=== PATIENT | female | born 1980 | race Hispanic/Latino ===

== ENCOUNTER 2016-12-15 08:58 | Emergency (ER) | payer OTHER ==
[2016-12-15 09:08] VITALS: TEMP 98; O2SAT 98
[2016-12-15 09:09] VITALS: BMI 24.7
[2016-12-15] MEDS ORDERED: Sodium Chloride 0.9% 1,000 ML IV STA (09:52)
--- NOTE | 2016-12-15 09:57 | ED PDOC ---
HPI: Back <Samantha Mobley Y - Last Filed: 12/15/16 12:40> Chief Complaint (Provider): Back pain, nausea History Per: Patient History/Exam Limitations: no limitations Onset/Duration Of Symptoms: Days (1) Current Symptoms Are (Timing): Still Present Quality Of Discomfort: Unable To Describe Severity: Mild Pain Scale Rating Of: 1 Exacerbating Factor(s): Movement Additional Complaint(s): 36 year old female presents with chills, nausea, back pain that began overnight , and urinary frequency for the past few days. Patient took temp at home overnight was approx. 99.0F, denies chest pain, dyspnea, dysuria, hematuria, diarrhea, pedal edema. Reports having nephrolithiasis in June 2016, but she passed the stone, these symptoms are similar to last presentation to ED but were more gradual. She took a tramadol last night, with relief of pain, but nausea persisted. She has no appetite. Does not think she is , although she is trying to conceive. LMP: 11/23/16. <Sowmya Dean - Last Filed: 01/04/17 11:32> Time Seen by Provider: 12/15/16 09:23 Chief Complaint (Nursing): Back Pain Past Medical History Vital Signs: Last Vital Signs Temp 98 F 12/15/16 09:23 Pulse 83 12/15/16 09:23 Resp 16 12/15/16 09:23 BP 99/59 L 12/15/16 09:23 Pulse Ox 98 12/15/16 12:06 <LeandraSamantha Y - Last Filed: 12/15/16 12:40> Vital Signs: Last Vital Signs Temp 98 F 12/15/16 09:23 Pulse 83 12/15/16 09:23 Resp 16 12/15/16 09:23 BP 99/59 L 12/15/16 09:23 Pulse Ox 98 12/15/16 09:23 - Medical History PMH: Kidney Stones - Surgical History Surgical History: - Family History Family History: States: Unknown Family Hx <Sowmya Dean - Last Filed: 01/04/17 11:32> - Home Medications Home Medications: Ambulatory Orders Medication Instructions Recorded Tamsulosin [Flomax] 0.4 mg PO DAILY #5 cap 07/24/16 traMADol [Ultram] 50 mg PO Q8 #10 tab 07/24/16 Ondansetron ODT [Zofran ODT] 4 mg PO Q6 PRN #10 odt 07/25/16 Nitrofurantoin Macrocrystals 100 mg PO BID #14 cap 12/15/16 [Macrobid] Tamsulosin [Flomax] 0.4 mg PO DAILY #14 cap 12/15/16 oxyCODONE/Acetaminophen [Percocet 1 tab PO Q6H PRN #5 tab 12/15/16 5/325 mg Tab] - Allergies Allergies/Adverse Reactions: Allergies Allergy/AdvReac Type Severity Reaction Status Date / Time wheat dextrin AdvReac PAIN Verified 12/15/16 09:27 Physical Exam - Reviewed Vital Signs Reviewed: Yes (BP: 99/59) - Physical Exam Appears: Positive for: Uncomfortable Skin: Positive for: Normal Color Eye Exam: Positive for: Normal appearance Neck: Positive for: Normal, Painless ROM Cardiovascular/Chest: Positive for: Regular Rate, Rhythm. Negative for: Edema, JVD, Murmur, Bradycardia, Tachycardia Respiratory: Positive for: Normal Breath Sounds. Negative for: Accessory Muscle Use, Crackles, Rales, Rhonchi, Wheezing, Respiratory Distress Gastrointestinal/Abdominal: Positive for: Bowel Sounds, Soft, Tenderness (right lumbar, suprapubic ). Negative for: Organomegaly, Distended, Guarding, Rebound Back: Positive for: Normal Inspection. 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 Mobley who agrees with the assessment and plan delineated above. Reassessment : 12:00 Denies pain, nausea improved. CBC, CMP WNL UA: moderate blood Upreg negative findings d/w Dr. Mobley <Sowmya Dean - Last Filed: 01/04/17 11:32> Medical Decision Making Medical Decision Making: Reevaluation 12:41 Pt is feeling better and tolerating PO. Explained to pt that blood in urine can be kidney stones, but pt is comfortable and tolerating PO. No need for imaging at this time. Labs reviewed. Instructed for outpatient urology follow-up. Patient agreed to treatment plan. Scribe Attestation: Documented by Nena Mansfield, acting as a scribe for Samantha Mobley MD. Provider Scribe Attestation: All medical record entries made by the Scribe were at my direction and personally dictated by me. I have reviewed the chart and agree that the record accurately reflects my personal performance of the history, physical exam, medical decision making, and the department course for this patient. I have also personally directed, reviewed, and agree with the discharge instructions and disposition. <Samantha Mobley - Last Filed: 12/15/16 12:40> Disposition <Samantha Mobley - Last Filed: 12/15/16 12:40> - Disposition Disposition Time: 11:32 <Sowmya Dean - Last Filed: 01/04/17 11:32> - Clinical Impression Clinical Impression: Hematuria - Disposition Referrals: Arie Cueva MD [Medical Doctor] - Condition: IMPROVED Additional Instructions: follow up with urologist in 1-2 days return to the ED with any worsening or concerning symptoms. Prescriptions: Nitrofurantoin Macrocrystals [Macrobid] 100 mg PO BID #14 cap oxyCODONE/Acetaminophen [Percocet 5/325 mg Tab] 1 tab PO Q6H PRN #5 tab PRN Reason: Pain, Moderate (4-7) Tamsulosin [Flomax] 0.4 mg PO DAILY #14 cap Instructions: Acute Hematuria (ED)
[2016-12-15 10:37] LABS: BASO % 0.2 % (0.0-2.0); EOS % 0.6 % (0.0-4.0); HEMATOCRIT 43.2 % (34.0-47.0); LYMPH # 0.8 K/uL (1.0-4.3); LYMPH % 13.4 % (20.0-40.0); MEAN CELL VOLUME 94.8 fl (81.0-99.0); MEAN CORPUSCULAR HEMOGLOBIN 31.3 pg (27.0-31.0); MEAN PLATELET VOLUME 7.8 fl (7.2-11.7); MONO # 0.7 K/uL (0.0-0.8); MONO % 13.2 % (0.0-10.0); NEUT # 4.1 K/uL (1.8-7.0); NEUT % 72.6 % (50.0-75.0); RED CELL DISTRIBUTION WIDTH 13.7 % (11.5-14.5); WHITE BLOOD COUNT 5.6 K/uL (4.8-10.8)
[2016-12-15 10:59] LABS: ALB/GLOB RATIO 1.4 (1.0-2.1); ALKALINE PHOSPHATASE 68 U/L (38-126); ALT/SGPT 36 U/L (9-52); AST/SGOT 34 U/L (14-36); BILIRUBIN,TOTAL 0.5 mg/dl (0.2-1.3); BLOOD UREA NITROGEN 13 mg/dl (7-17); CALCIUM 9.1 mg/dL (8.4-10.2); CARBON DIOXIDE 23 mmol/L (22-30); CHLORIDE 106 mmol/L (98-107); GFR AFRICAN-AMERICAN > 60; GLUCOSE,RANDOM 86 mg/dL (65-105); POTASSIUM 4.3 MMOL/L (3.6-5.0); SODIUM 137 mmol/l (132-148); TOTAL PROTEIN 7.1 G/DL (6.3-8.2)
[2016-12-15 11:14] LABS: RBC URINE 9 /hpf (0-3); URINE BILIRUBIN NEGATIVE (NEGATIVE); URINE BLOOD SMALL (NEGATIVE); URINE COLOR YELLOW (YELLOW); URINE GLUCOSE (UA) NEG (Normal); URINE KETONE 20 mg/dL (NEGATIVE); URINE LEUKOCYTE ESTERASE NEG Leu/uL (Negative); URINE PROTEIN NEGATIVE (NEGATIVE); URINE UROBILINOGEN 0.2-1.0 mg/dL (0.2-1.0); WBC URINE 1 /hpf (0-5)
[2016-12-15 13:37] VITALS: BP 105/68; PULSE 80; RESP 18
== END 2016-12-15 12:56 | disposition home or self-care (01) ==
LOC: MERGE 08:58 → H.ER 08:58
DX: R31.9 Hematuria, unspecified (principal)

== ENCOUNTER 2017-05-30 18:21 | Emergency (ER) | payer OTHER ==
[2017-05-30 18:21] VITALS: BMI 24.7
[2017-05-30 18:27] VITALS: RESP 16; TEMP 98.3
[2017-05-30] MEDS ORDERED: Lactated Ringer's 1,000 ML IV STA (19:01)
[2017-05-30 19:08] VITALS: O2SAT 100
[2017-05-30 19:10] LABS: BASO % 0.2 % (0.0-2.0); EOS % 0.1 % (0.0-4.0); HEMOGLOBIN 11.9 g/dL (12.0-16.0); LYMPH # 0.5 K/uL (1.0-4.3); LYMPH % 2.6 % (20.0-40.0); MEAN CELL VOLUME 93.9 fl (81.0-99.0); MEAN CORPUSCULAR HEMOGLOBIN 32.4 pg (27.0-31.0); MEAN CORPUSCULAR HGB CONC 34.5 g/dL (33.0-37.0); MEAN PLATELET VOLUME 7.2 fl (7.2-11.7); MONO # 0.9 K/uL (0.0-0.8); MONO % 4.7 % (0.0-10.0); NEUT # 17.4 K/uL (1.8-7.0); NEUT % 92.4 % (50.0-75.0); PLATELET COUNT 280 K/uL (130-400); RBC 3.68 Mil/uL (3.80-5.20); WHITE BLOOD COUNT 18.9 K/uL (4.8-10.8)
[2017-05-30] MEDS ORDERED: Dextrose 5%/Lactated Ringer's 1,000 ML IV SCH (19:15)
[2017-05-30 19:29] VITALS: BP 116/95; PULSE 97
[2017-05-30 19:31] LABS: ALBUMIN 3.3 g/dL (3.5-5.0); ALT/SGPT 36 U/L (9-52); AST/SGOT 21 U/L (14-36); BLOOD UREA NITROGEN 8 mg/dl (7-17); CALCIUM 8.3 mg/dL (8.4-10.2); GFR AFRICAN-AMERICAN > 60; GFR NON-AFRICAN AMERICAN > 60; MAGNESIUM 1.6 MG/DL (1.6-2.3)
[2017-05-30 19:37] LABS: ALB/GLOB RATIO 1.1 (1.0-2.1)
[2017-05-30 19:41] LABS: ANISOCYTOSIS SLIGHT; BANDS 1 % (0-2); EOSINOPHIL 1 % (0-7); LYMPHOCYTE 3 % (20-50); MONOCYTE 4 % (0-10); NEUTROPHIL 91 % (42-75); PLATELET ESTIMATE NORMAL (NORMAL); TOTAL CELLS COUNTED 100
--- NOTE | 2017-05-30 19:47 | ED PDOC ---
Syncope/Near Syncope/Dizziness Time Seen by Provider: 05/30/17 18:29 Chief Complaint (Nursing): Syncope Chief Complaint (Provider): Syncope History Per: Patient, Family () History/Exam Limitations: no limitations Onset/Duration Of Symptoms: Mins (prior to arrival) Additional Complaint(s): 36 year old female, who is approximately 18 weeks , presents to the ER after syncopal episode today. Patient states she woke up with sore throat this morning, and over the course of day began having episodes of watery non-bloody diarrhea. Just prior to arrival, she became nauseous and attempted to vomit, but passed out. reported patient had a few seconds of convulsive activity, after which she woke up with no post-ictal state or urinary incontinence. Patient has history of syncopal episodes in the past. Able to tolerate fluids today but no appetite. Also reports crampy abdominal pain. Patient states that her 2yo child had loose stools this past week. PMD: Dr. Shoemaker Past Medical History Reviewed: Historical Data, Nursing Documentation, Vital Signs Vital Signs: Last Vital Signs Temp 98.3 F 05/30/17 18:23 Pulse 97 H 05/30/17 19:28 Resp 16 05/30/17 19:28 BP 116/95 H 05/30/17 19:28 Pulse Ox 100 05/30/17 19:28 - Medical History PMH: Kidney Stones, Chronic Kidney Disease Other PMH: Ciliac disease - Surgical History Surgical History: - Family History Family History: States: Unknown Family Hx - Social History Current smoker - smoking cessation education provided: No Alcohol: None - Home Medications Home Medications: Ambulatory Orders Medication Instructions Recorded Tamsulosin [Flomax] 0.4 mg PO DAILY #5 cap 07/24/16 traMADol [Ultram] 50 mg PO Q8 #10 tab 07/24/16 Ondansetron ODT [Zofran ODT] 4 mg PO Q6 PRN #10 odt 07/25/16 Nitrofurantoin Macrocrystals 100 mg PO BID #14 cap 12/15/16 [Macrobid] Tamsulosin [Flomax] 0.4 mg PO DAILY #14 cap 12/15/16 oxyCODONE/Acetaminophen [Percocet 1 tab PO Q6H PRN #5 tab 12/15/16 5/325 mg Tab] Dicyclomine [Bentyl] 20 mg PO BID PRN #30 tab 05/30/17 Ondansetron ODT [Zofran ODT] 1 odt PO Q6 PRN #20 odt 05/30/17 Oseltamivir [Tamiflu] 75 mg PO BID #10 cap 05/30/17 - Allergies Allergies/Adverse Reactions: Allergies Allergy/AdvReac Type Severity Reaction Status Date / Time wheat dextrin AdvReac PAIN Verified 12/15/16 09:27 Review of Systems ROS Statement: Except As Marked, All Systems Reviewed And Found Negative (As per HPI, otherwise negative) Gastrointestinal: Positive for: Nausea, Abdominal Pain, Diarrhea. Negative for : Vomiting Genitourinary Female: Negative for: Incontinence Neurological: Positive for: Other (syncope) Physical Exam - Reviewed Nursing Documentation Reviewed: Yes Vital Signs Reviewed: Yes - Physical Exam Appears: Positive for: Non-toxic, No Acute Distress (but tired appearing) Head Exam: Positive for: ATRAUMATIC, NORMOCEPHALIC Skin: Positive for: Warm, Dry, Pallor Eye Exam: Positive for: EOMI, PERRL ENT: Positive for: Pharynx Is (clear with dry mucus membranes) Neck: Positive for: Painless ROM, Supple Cardiovascular/Chest: Positive for: Regular Rate, Rhythm, Chest Non Tender. Negative for: Murmur Respiratory: Positive for: Normal Breath Sounds. Negative for: Respiratory Distress Gastrointestinal/Abdominal: Positive for: Bowel Sounds, Soft, Tenderness (mild lower abdominal). Negative for: Mass, Distended, Guarding, Rebound Back: Negative for: Decreased ROM Extremity: Positive for: Normal ROM. Negative for: Pedal Edema, Deformity Lymphatic: Negative for: Adenopathy Neurologic/Psych: Positive for: Alert, Oriented (x3), Mood/Affect (mildly anxious affect). Negative for: Motor/Sensory Deficits - Laboratory Results Result Diagrams: 05/30/17 19:04 05/30/17 19:04 - ECG O2 Sat by Pulse Oximetry: 100 (RA) Pulse Ox Interpretation: Normal Medical Decision Making Medical Decision Making: Initial Impression: Syncope, diarrheal illness Differential includes but is not limited to: gastroenteritis, dehydration, electrolyte abnormality, hypovolemia, or viral illness Time: 18:42 Initial Plan: * EKG * Labs * Urine dipstick * Rapid strep test * Influenza A B * Throat culture * Lactated Ringers IV * Zofran 4 mg IV * Dextrose 5%/Lactated Ringers IV * Pending US OB Patient Name: TARA OLGUIN (Age): 1980 36 Gender: F Date of Exam: 05/30/2017 Referring Physician: Iona Jay # of Images: [phone] Ordered As: US OB LIMITED Page 1 of 2 EXAM: US After First Trimester, Transabdominal EXAM DATE/TIME: 05/30/2017 7:02 PM CLINICAL HISTORY: 36 years old, female; Signs and symptoms; Lmp or gestational age (in weeks): ; Other: Syncope; ; Additional info: Abd pain syncope R/O demise TECHNIQUE: Real-time transabdominal obstetrical ultrasound of the maternal pelvis and a second or third trimester with image documentation. COMPARISON: There are no prior studies for comparison. FINDINGS: Fetus: There is a single living intrauterine gestation in breech presentation. There is a heart rate of 145 beats per minute. motion was seen at real-time. Placenta: Placenta is posterior and low-lying. Amniotic fluid: Amnionic fluid volume appears normal. Anatomy: Early gestational age limits evaluation of anatomy. BIOMETRICS Gestational age by US: 18 weeks 5 days EFW: 236 g MATERNAL: Cervix: Cervix measures approximately 4 cm in length IMPRESSION: 18 week 5 day single breech fetus, estimated date of delivery ; low-lying posterior placenta Labs demonstrate leukocytosis, which is consistent with acute infectious illness. Otherwise, no emergently significant abnormalities. Time: 22:40 Patient reporting she is feeling better. She walked to the bathroom without lightheadedness. Discussed w/ patient findings, and she is agreeable to discharge plan. Will follow up with OB or primary care. Scribe Attestation: Documented by Letty Cyr, acting as a scribe for Iona Jay MD Provider Scribe Attestation: All medical record entries made by the Scribe were at my direction and personally dictated by me. I have reviewed the chart and agree that the record accurately reflects my personal performance of the history, physical exam, medical decision making, and the department course for this patient. I have also personally directed, reviewed, and agree with the discharge instructions and disposition. Disposition - Clinical Impression Clinical Impression: Syncope, Viral illness - Disposition Referrals: Jax Shoemaker MD [Staff Provider] - 05/31/17 Disposition: Routine/Home Disposition Time: 20:00 Condition: IMPROVED Additional Instructions: REST AND DRINK PLENTY OF HYDRATING FLUIDS Prescriptions: Dicyclomine [Bentyl] 20 mg PO BID PRN #30 tab PRN Reason: abdominal pain Ondansetron ODT [Zofran ODT] 1 odt PO Q6 PRN #20 odt PRN Reason: Nausea/Vomiting Oseltamivir [Tamiflu] 75 mg PO BID #10 cap Instructions: Syncope (ED), Gastroenteritis (ED), Nutrition Tips for Relief of Diarrhea (ED) Forms: [facility] ED School/Work Excuse
--- NOTE | 2017-05-31 09:34 | US ---
PROCEDURE: Obstetrical ultrasound examination HISTORY: abd pain syncope r/o demise COMPARISON: Not available TECHNIQUE: Transabdominal FINDINGS: The examination demonstrates a single live intrauterine gestation in breech presentation. The heart rate is 145 beats per minute. A normal quantity of amniotic fluid is visualized grossly. A posterior placenta is identified. The placenta is low-lying. There is no evidence of placenta previa. The cervix is closed and measures 4.0 cm in length. biometry yields a gestational age by ultrasound of 18 weeks 5 days. The RACQUEL by ultrasound is 10/26/2017. The EFW is 236.16 g. Neither the right nor the left ovary are visualized. There are no adnexal masses seen. anatomy was not formally evaluated at this time. IMPRESSION: Single live intrauterine gestation of approximately 18 weeks 5 days. Breech presentation. Low-lying placenta. Cervix long and closed. 145. Preliminary interpretation of this examination was reported by [facility] at 9:57 p.m. on 05/30/2017. There is concurrence of this report with the preliminary interpretation.
--- NOTE | 2017-05-31 10:52 | CARD ---
APPROVED REPORT EKG Measurement Heart [id number] <Conclusion> Normal sinus rhythm Normal ECG
== END 2017-05-31 00:24 | disposition home or self-care (01) ==
LOC: H.ER 18:21
DX: O99.89 Other specified diseases and conditions complicating pregnancy, childbirth and the puerperium (principal); O26.892 Other specified pregnancy related conditions, second trimester; O26.832 Pregnancy related renal disease, second trimester; Z87.442 Personal history of urinary calculi; N18.9 Chronic kidney disease, unspecified; O98.512 Other viral diseases complicating pregnancy, second trimester; Z36.9 Encounter for antenatal screening, unspecified; Z3A.18 18 weeks gestation of pregnancy; O32.1XX0 Maternal care for breech presentation, not applicable or unspecified
CPT/HCPCS: 76815; 80053; 82550; 82948; 83605; 83735; 84100; 85025; 86850; 86900; 87070; 87430; 87804; 93005; 96374; 99285; J2405; J7120

== ENCOUNTER 2017-12-22 03:02 | Emergency (ER) | payer OTHER ==
[2017-12-22 03:02] VITALS: BMI 24.7
[2017-12-22] MEDS ORDERED: Sodium Chloride 0.9% 1,000 ML IV STA ×2 (03:31→04:22)
--- NOTE | 2017-12-22 03:39 | ED PDOC ---
HPI: Headache Time Seen by Provider: 12/22/17 03:15 Chief Complaint (Nursing): Headache Chief Complaint (Provider): headache History Per: Patient History/Exam Limitations: no limitations Onset/Duration Of Symptoms: Hrs Current Symptoms Are (Timing): Still Present Quality: "Pain" Associated Symptoms: Photophobia, Nausea, Vomiting Additional Complaint(s): 37 y/o female presents for evaluation of frontal headache x 10 hours. Patient states headache started frontal and now spread around head like a band. Associated photophobia, nausea, and vomiting. Patient states she can not keep liquids or medication for headache down, which prompted ED visit. Denies fever , neck/back pain, extremity numbness/weakness, vision changes, chest pain, shortness of breath, palpitations, abdominal pain. Past Medical History Reviewed: Historical Data, Nursing Documentation, Vital Signs Vital Signs: Last Vital Signs Temp 97.9 F 12/22/17 03:11 Pulse 70 12/22/17 03:11 Resp 18 12/22/17 03:11 BP 118/73 12/22/17 03:11 Pulse Ox 98 12/22/17 03:11 - Medical History PMH: Kidney Stones, Chronic Kidney Disease - Surgical History Surgical History: - Family History Family History: States: Unknown Family Hx - Home Medications Home Medications: Ambulatory Orders Medication Instructions Recorded Tamsulosin [Flomax] 0.4 mg PO DAILY #5 cap 07/24/16 traMADol [Ultram] 50 mg PO Q8 #10 tab 07/24/16 Ondansetron ODT [Zofran ODT] 4 mg PO Q6 PRN #10 odt 07/25/16 Nitrofurantoin Macrocrystals 100 mg PO BID #14 cap 12/15/16 [Macrobid] Tamsulosin [Flomax] 0.4 mg PO DAILY #14 cap 12/15/16 oxyCODONE/Acetaminophen [Percocet 1 tab PO Q6H PRN #5 tab 12/15/16 5/325 mg Tab] Dicyclomine [Bentyl] 20 mg PO BID PRN #30 tab 05/30/17 Ondansetron ODT [Zofran ODT] 1 odt PO Q6 PRN #20 odt 05/30/17 Oseltamivir [Tamiflu] 75 mg PO BID #10 cap 05/30/17 Ondansetron ODT [Zofran ODT] 4 mg PO Q8 PRN #10 odt 12/22/17 - Allergies Allergies/Adverse Reactions: Allergies Allergy/AdvReac Type Severity Reaction Status Date / Time wheat dextrin AdvReac PAIN Verified 12/22/17 03:11 Review of Systems ROS Statement: Except As Marked, All Systems Reviewed And Found Negative Gastrointestinal: Positive for: Nausea, Vomiting Neurological: Positive for: Headache Physical Exam - Reviewed Nursing Documentation Reviewed: Yes Vital Signs Reviewed: Yes - Physical Exam Appears: Positive for: Well, Non-toxic, Uncomfortable (vomiting) Head Exam: Positive for: ATRAUMATIC, NORMAL INSPECTION, NORMOCEPHALIC Skin: Positive for: Normal Color Eye Exam: Positive for: Normal appearance, EOMI, PERRL ENT: Positive for: Normal ENT Inspection Cardiovascular/Chest: Positive for: Regular Rate, Rhythm Respiratory: Positive for: Normal Breath Sounds Gastrointestinal/Abdominal: Positive for: Normal Exam, Bowel Sounds, Soft Back: Positive for: Normal Inspection Extremity: Positive for: Normal ROM Neurologic/Psych: Positive for: Alert, Oriented (x3) - Laboratory Results Result Diagrams: 12/22/17 03:45 12/22/17 03:45 - ECG O2 Sat by Pulse Oximetry: 98 - Progress ED Course And Treament: cbc cmp IV fluids IV reglan CT head Patient states headache/nausea slightly improved; IV benadryl, IV phenergan ordered EXAM: CT Head Without Intravenous Contrast CLINICAL HISTORY: 37 years old, female; Pain; Headache; Additional info: Headache, vomiting TECHNIQUE: Axial computed tomography images of the head/brain without intravenous contrast. All CT scans at this facility use at least one of these dose optimization techniques: automated exposure control; mA and/or kV adjustment per patient size (includes targeted exams where dose is matched to clinical indication); or iterative reconstruction. Coronal and sagittal reformatted images were created and reviewed. COMPARISON: CT HEAD OR BRAIN W/O CONT 2012-05-16 00:21 FINDINGS: Brain: No significant white matter disease. No hemorrhage. Ventricles: Unremarkable. No ventriculomegaly. Bones/joints: Unremarkable. No acute fracture. Soft tissues: Unremarkable. Sinuses: Unremarkable as visualized. No acute sinusitis. Mastoid air cells: Unremarkable as visualized. No mastoid effusion. IMPRESSION: No acute findings. On re-eval, patient states headache and nausea improving. IV toradol, IV zofran ordered On re-eval, patient states headache resolved. Tolerating PO Case discussed with ED attending Dr. Arthur, will discharge patient with instructions to follow up PMD for repeat Na level in 1-2 days Patient educated on findings, states she will call her PMD in the am for f/up. Rx Zofran provided Advised pedialyte/gatorade Return precautions given Disposition - Clinical Impression Clinical Impression: Headache, Hyponatremia - Patient ED Disposition Is Patient to be Admitted: No Counseled Patient/Family Regarding: Studies Performed, Diagnosis, Need For Followup, Rx Given - Disposition Referrals: Maggi Chatman MD [Primary Care Provider] - Disposition: Routine/Home Disposition Time: 06:00 Condition: IMPROVED Additional Instructions: Follow up with primary doctor for repeat sodium level within 1-2 days Take Ibuprofen or Tylenol as directed, as needed for headache Take Zofran, as directed, as needed for nausea/vomiting Return to ED for worsening/concerning symptoms. Prescriptions: Ondansetron ODT [Zofran ODT] 4 mg PO Q8 PRN #10 odt PRN Reason: Nausea/Vomiting Instructions: Headache, Adult, Hyponatremia
[2017-12-22 04:03] LABS: BASO % 0.6 % (0.0-2.0); EOS # 0.1 K/uL (0.0-0.7); EOS % 0.8 % (0.0-4.0); HEMOGLOBIN 12.5 g/dL (12.0-16.0); LYMPH # 1.7 K/uL (1.0-4.3); MEAN CELL VOLUME 92.5 fl (81.0-99.0); MEAN CORPUSCULAR HEMOGLOBIN 32.3 pg (27.0-31.0); MEAN CORPUSCULAR HGB CONC 34.9 g/dL (33.0-37.0); MONO # 0.7 K/uL (0.0-0.8); MONO % 9.8 % (0.0-10.0); NEUT # 4.9 K/uL (1.8-7.0); NEUT % 65.8 % (50.0-75.0); NRBC % 0.1 % (0.0-0.0); RBC 3.88 Mil/uL (3.80-5.20); RED CELL DISTRIBUTION WIDTH 12.2 % (11.5-14.5); WHITE BLOOD COUNT 7.4 K/uL (4.8-10.8)
[2017-12-22 04:12] LABS: SQUAMOUS EPITHIAL < 1 /hpf (0-5); URINE BILIRUBIN NEGATIVE (NEGATIVE); URINE BLOOD NEGATIVE (NEGATIVE); URINE CLARITY SLIGHTY-CLOUDY (Clear); URINE COLOR YELLOW (YELLOW); URINE GLUCOSE (UA) NEG (Normal); URINE LEUKOCYTE ESTERASE TRACE Leu/uL (Negative); URINE PROTEIN 30 mg/dL (NEGATIVE); URINE UROBILINOGEN 0.2-1.0 mg/dL (0.2-1.0)
[2017-12-22 04:13] LABS: CALCIUM 8.9 mg/dL (8.4-10.2); GFR NON-AFRICAN AMERICAN > 60
[2017-12-22 04:15] LABS: ALB/GLOB RATIO 1.4 (1.0-2.1); ALBUMIN 4.1 g/dL (3.5-5.0); ALT/SGPT 28 U/L (9-52); AST/SGOT 53 U/L (14-36); BLOOD UREA NITROGEN 10 mg/dl (7-17)
[2017-12-22] MEDS ORDERED: DiphenhydrAMINE 50 mg/ml Inj IVP STA (04:26)
[2017-12-22] MEDS ORDERED: DiphenhydrAMINE 50 mg/ml Inj ONE (04:43)
[2017-12-22 07:16] VITALS: BP 122/71; PULSE 86; RESP 16; TEMP 98
--- NOTE | 2017-12-22 11:42 | CT ---
Date of service: 12/22/2017 PROCEDURE: CT HEAD WITHOUT CONTRAST. HISTORY: headache, vomiting COMPARISON: Noncontrast head CT 05/16/2012. TECHNIQUE: Axial computed tomography images were obtained through the head/brain without intravenous contrast. Radiation dose: Total exam DLP = 912.55 mGy-cm. This CT exam was performed using one or more of the following dose reduction techniques: Automated exposure control, adjustment of the mA and/or kV according to patient size, and/or use of iterative reconstruction technique. FINDINGS: HEMORRHAGE: No intracranial hemorrhage. BRAIN: Normal cooper-white matter differentiation and density are appreciated throughout the cerebrum and cerebellum with the brainstem appearing unremarkable as well. There is no mass effect. There is no suspicious extra-axial fluid collection and the midline brain anatomy appears diffusely unremarkable. VENTRICLES: Unremarkable. No hydrocephalus. CALVARIUM: Unremarkable. PARANASAL SINUSES: Unremarkable as visualized. No significant inflammatory changes. MASTOID AIR CELLS: Unremarkable as visualized. No inflammatory changes. OTHER FINDINGS: None. IMPRESSION: Stable, normal-appearing CT of the Head.
[2017-12-28 03:08] VITALS: O2SAT 98
== END 2017-12-22 07:17 | disposition home or self-care (01) ==
LOC: H.ER 03:02
DX: R51 Headache (principal); R11.0 Nausea
CPT/HCPCS: 70450; 80053; 81003; 85025; 96361; 96365; 96375; 99284; J1200; J1885; J2405; J2550; J2765; J7030